=== PATIENT | female | born 2000 | race African-American/Black ===

== ENCOUNTER 2022-12-25 23:29 | Emergency (ER) | payer MEDICAID ==
[~2022-12-25] VITALS: Ht 165.1 cm; Wt 79.4 kg
[2022-12-26 00:05] VITALS: BP_SYST 102; PULSE 65; RESP 18; TEMP 97.3; O2SAT 96
[2022-12-26 02:13] LABS: COVID19 ANTIGEN SOFIA FIA NEGATIVE (NEGATIVE)
[2022-12-26 02:15] LABS: INFLUENZA TYPE A Negative (NEGATIVE); INFLUENZA TYPE B NEGATIVE (NEGATIVE)
[2022-12-26] MEDS ORDERED: PRED20TA PO (03:45)
[2022-12-26] MEDS ORDERED: GUAI5LIQ13 PO (03:48)
== END 2022-12-26 04:00 | disposition home or self-care (01) ==
LOC: SED 23:29
DX: J06.9 Acute upper respiratory infection, unspecified (principal); R50.9 Fever, unspecified; R05.9 Cough, unspecified; J45.909 Unspecified asthma, uncomplicated; Z79.899 Other long term (current) drug therapy; Z20.822 Contact with and (suspected) exposure to COVID-19
CPT/HCPCS: 36415; 99283